=== PATIENT | male | born 1955 | race Caucasian/White ===

== ENCOUNTER 2020-07-02 14:56 | Observation (INO) ==
[2020-07-02] MEDS ORDERED: Isovue-370 500 ML BOTTLE IVP ONE (15:17)
[2020-07-02] MEDS ORDERED: Acetaminophen 650 MG RECTAL SUPP RC ONE (15:19)
[2020-07-02] MEDS: 0.9 % Sodium Chloride 1,000 ML IVC SCH ×2 (15:20→17:58)
[2020-07-02 15:27] LABS: Eosinophils % 0.1 %; Mean Platelet Volume 9.2 fL (9.4-12.4); Red Cell Distribution Width 12.5 % (11.5-14.5); Segmented Neutrophils % 91.3 %
[2020-07-02 15:28] LABS: Hematocrit 39.7 % (37.5-50.1); Hemoglobin 13.7 g/dL (12.9-16.9); Immature Granulocytes % 0.4 % (0-4); Immature Platelets 2.1 % (1.1-6.1); Lymphocytes # 0.3 K/mcL (0.6-4.6); Mean Corpuscular HGB Conc 34.5 g/dL (31.6-35.5); Mean Corpuscular Hemoglobin 31.6 pg (28.0-33.3); Mean Corpuscular Volume 91.7 fL (83.0-100.0); Monocytes # 0.3 K/mcL (0.0-1.3); Monocytes % 4.2 %; Neutrophils # 6.6 K/mcL (1.6-8.9); Platelet Count 135 K/mcL (140-400); Red Blood Count 4.33 M/mcL (4.19-5.50); White Blood Count 7.2 K/mcL (4.3-11.1)
[2020-07-02 15:33] LABS: INR 1.1; Prothrombin Time 13.1 Seconds (9.4-12.1)
[2020-07-02 15:36] LABS: Activated Partial Thrombo Time 27.8 Seconds (26.0-36.0)
[2020-07-02 15:49] LABS: Alanine Aminotransferase 18 Units/L (7-52); Albumin 3.8 g/dL (3.5-5.7); Albumin/Globulin Ratio 1.2 (1.1-2.2); Alkaline Phosphatase 136 Units/L (34-104); Aspartate Amino Transferase 18 Units/L (13-39); BUN/Creatinine Ratio 26 (6-26); Bilirubin,Direct 0.1 mg/dL (0.0-0.2); Bilirubin,Indirect 0.6 mg/dL (0.0-1.0); Bilirubin,Total 0.7 mg/dL (0.3-1.0); Blood Urea Nitrogen 15 mg/dL (8-23); Calcium 8.9 mg/dL (8.6-10.3); Carbon Dioxide 28 mEq/L (23-29); Chloride 100 mEq/L (98-107); Globulin 3.2 g/dL (2.4-3.5); Glucose 126 mg/dL (70-105); Lipase 23 Units/L (11-82); Osmolality,Calculated 278 (280-300); Potassium 3.7 mEq/L (3.5-5.1); Sodium 133 mEq/L (136-145); Troponin I < 0.03 ng/mL (< 0.04); eGFR For African Americans > 60 (> 60); eGFR For Non-African Americans > 60 (> 60)
[2020-07-02 16:46] LABS: Bacteria,Urine Few per hpf (None-Few); Bilirubin,Urine Negative (Negative); Blood,Urine Moderate (Negative); Clarity,Urine Turbid (Clear); Color,Urine Yellow (Yellow); Glucose,Urine (UA) Normal (Normal); Ketones,Urine Trace mg/dL (Negative); Leukocyte Esterase,Urine Large (Negative); Mucus,Urine Few per lpf (None-Few); Nitrite,Urine Negative (Negative); PH,Urine 7.5 pH Units (5.0-8.0); Protein,Urine 50 mg/dL (Neg-Trace); RBC,Urine 50-100 per hpf (0-3); Specific Gravity,Urine > 1.030 (1.010-1.025); Squamous Epithelial Cell,Urine Few per hpf (None-Few); WBC,Urine TNTC per hpf (0-3)
[2020-07-02] MEDS ORDERED: cefTRIAXone 1,000 MG in 0.9 % Sodium Chloride Mini Bag 100 ML IVPB ONE (16:56)
[2020-07-02] MEDS ORDERED: 0.9 % Sodium Chloride 1,000 ML IVC ONE ×2 (16:57→18:16)
[2020-07-02] MEDS ORDERED: cefTRIAXone 1,000 MG in Water for inj. (sterile) 10 ML IVP ONE (17:51)
[2020-07-02] MEDS ORDERED: Ondansetron ODT 4 MG TAB.RAPDIS SL PRN (17:55)
[2020-07-02] MEDS ORDERED: Naloxone 0.4 MG/ML INJ IVP PRN (17:55)
[2020-07-02] MEDS: Baclofen 10 MG TABLET PO SCH (21:24)
[2020-07-02] MEDS: carBAMazepine 200 MG TABLET PO SCH (21:24)
[2020-07-03 05:55] LABS: Basophils % 0.1 %; Hematocrit 34.1 % (37.5-50.1)
[2020-07-03 05:56] LABS: Hemoglobin 11.5 g/dL (12.9-16.9); Immature Granulocytes % 0.5 % (0-4); Immature Platelets 1.9 % (1.1-6.1); Lymphocytes # 1.1 K/mcL (0.6-4.6); Lymphocytes % 11.7 %; Mean Corpuscular HGB Conc 33.7 g/dL (31.6-35.5); Mean Corpuscular Hemoglobin 32.8 pg (28.0-33.3); Mean Corpuscular Volume 97.2 fL (83.0-100.0); Mean Platelet Volume 9.4 fL (9.4-12.4); Monocytes # 0.7 K/mcL (0.0-1.3); Neutrophils # 7.8 K/mcL (1.6-8.9); Platelet Count 112 K/mcL (140-400); Red Blood Count 3.51 M/mcL (4.19-5.50); Red Cell Distribution Width 12.8 % (11.5-14.5); Segmented Neutrophils % 80.7 %; White Blood Count 9.6 K/mcL (4.3-11.1)
[2020-07-03 06:13] LABS: Alanine Aminotransferase 13 Units/L (7-52); Albumin/Globulin Ratio 1.1 (1.1-2.2); Alkaline Phosphatase 96 Units/L (34-104); Aspartate Amino Transferase 13 Units/L (13-39); BUN/Creatinine Ratio 29 (6-26); Bilirubin,Total 0.5 mg/dL (0.3-1.0); Blood Urea Nitrogen 16 mg/dL (8-23); Calcium 8.2 mg/dL (8.6-10.3); Carbon Dioxide 24 mEq/L (23-29); Chloride 107 mEq/L (98-107); Globulin 2.7 g/dL (2.4-3.5); Glucose 103 mg/dL (70-105); Magnesium 1.8 mg/dL (1.6-2.6); Osmolality,Calculated 281 (280-300); Phosphorous 2.2 mg/dL (2.7-4.5); Sodium 135 mEq/L (136-145); Total Protein 5.7 g/dL (6.4-8.9); eGFR For African Americans > 60 (> 60); eGFR For Non-African Americans > 60 (> 60)
[2020-07-03] MEDS: amLODIPine 5 MG TABLET PO SCH (10:45)
[2020-07-03] MEDS: cefTRIAXone 1,000 MG in Water for inj. (sterile) 10 ML IVP SCH (10:45)
[2020-07-03] MEDS: Aspirin 81 MG TAB.CHEW PO SCH (10:46)
[2020-07-03] MEDS: Baclofen 10 MG TABLET PO SCH ×3 (10:46→20:03)
[2020-07-03] MEDS: carBAMazepine 200 MG TABLET PO SCH ×2 (10:46→20:03)
[2020-07-03] MEDS: *HR* Heparin 5,000 UNIT/ML VIAL SQ SCH ×2 (16:44→22:01)
[2020-07-04] MEDS: *HR* Heparin 5,000 UNIT/ML VIAL SQ SCH (04:35)
[2020-07-04 08:32] LABS: Hemoglobin 11.4 g/dL (12.9-16.9); Mean Corpuscular Volume 97.7 fL (83.0-100.0)
[2020-07-04 08:33] LABS: Hematocrit 34.6 % (37.5-50.1); Immature Platelets 2.1 % (1.1-6.1); Mean Corpuscular HGB Conc 32.9 g/dL (31.6-35.5); Mean Corpuscular Hemoglobin 32.2 pg (28.0-33.3); Mean Platelet Volume 9.6 fL (9.4-12.4); Red Blood Count 3.54 M/mcL (4.19-5.50); Red Cell Distribution Width 12.6 % (11.5-14.5); White Blood Count 7.2 K/mcL (4.3-11.1)
[2020-07-04 08:43] LABS: BUN/Creatinine Ratio 32 (6-26); Blood Urea Nitrogen 16 mg/dL (8-23); Calcium 8.1 mg/dL (8.6-10.3); Carbon Dioxide 22 mEq/L (23-29); Chloride 103 mEq/L (98-107); Glucose 95 mg/dL (70-105); Osmolality,Calculated 275 (280-300); Phosphorous 2.3 mg/dL (2.7-4.5); Potassium 3.9 mEq/L (3.5-5.1); Sodium 132 mEq/L (136-145); eGFR For African Americans > 60 (> 60); eGFR For Non-African Americans > 60 (> 60)
[2020-07-04] MEDS: Aspirin 81 MG TAB.CHEW PO SCH (08:44)
[2020-07-04] MEDS: carBAMazepine 200 MG TABLET PO SCH (08:44)
[2020-07-04] MEDS: amLODIPine 5 MG TABLET PO SCH (08:44)
[2020-07-04] MEDS: cefTRIAXone 1,000 MG in Water for inj. (sterile) 10 ML IVP SCH (08:45)
[2020-07-04] MEDS: Baclofen 10 MG TABLET PO SCH (08:52)
[2020-07-04 12:05] VITALS: BP 138/75
[2020-07-04] MEDS ORDERED: carBAMazepine 200 MG TABLET PO SCH (20:00)
== END 2020-07-04 15:23 | disposition home or self-care (01) ==
LOC: EMEROOARM 14:56 → 2ANU 14:56 → SUATTDRO 17:58 → 2ANU 18:37
PROVIDERS: ADMIT Internal Medicine; ATTEND Internal Medicine